=== PATIENT | female | born 2000 | race Caucasian/White ===

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

== ENCOUNTER 2022-03-26 11:14 | Inpatient (IN) ==
[2022-03-26] MEDS ORDERED: ONDANSETRON INJ 2 MG/ML 2 ML VIAL IV STA (14:49)
[2022-03-26] MEDS ORDERED: ONDANSETRON INJ 2 MG/ML 2 ML VIAL ONE (14:50)
--- NOTE | 2022-03-26 16:34 | History & Physical Report ---
Date of Service March 26, 2022 Assessment & Plan (1) Oligohydramnios: (2) IUGR (intrauterine growth restriction): (3) History of loss: (4) Depression: (5) Intrauterine : Plan Plan - Patient admitted to labor and delivery for initiation of medical induction of labor - Currently /-[address] Bertrand, no evidence of contractions - Initiate induction with Connell bulb - Will proceed to Pitocin when bulb dislodges (~ 4 cm) to augment contractions - Once contractions are progressing, will consider ROM if not already - Will anticipate epidural as contractions arise - Labs pending Admission and Anticipated Discharge Date Admission Date: March 26, 2022 History of Present Illness Primary Care Provider: DO Manjinder Valladaresn is a 21 year old female currently at 38 w EGD with MAIKEL 04/06/22 determined by LMP 06/30/21 who presented to L&D after an ultrasound showing oligohydramnios. Patient is being admitted for induction as she was scheduled for induction 03/27/22 d/t IUGR. Patient notes nausea and diarrhea over the last 3 days with a single episode of emesis this AM, no cough or congestion (COVID - ). Complications: IUGR, oligohydramnios Reason for Induction/: IUGR, oligohydramnios Movement: Ongoing, active Fluid Loss/ROM: [place] fluid loss, possible urine leakage, Nitrazine negative Bloody show/discharge: None External FHT and uterine monitor: Category 1, good FHT variability, no contractions Last OB appointment: 03/22, regular care at [facility] Labs: Blood Type: O+ Antibody Screen: Negative Rubella: Immune RPR: Non-reactive Gonorrhea: Negative Chlamydia: Negative HIV: Negative HbSAg: Negative GBS: Negative Cff-DNA: Low risk ROS: +/- - Denies fever, chills, sweats - Denies dyspnea or pleuritic pain - Denies chest pain, palpitations, or pressure - Denies breast pain - Denies dysuria - Denies headache or visual changes Allergies Allergy/AdvReac Type Severity Reaction Status Date / Time hydrocodone [From Vicodin] AdvReac Severe GI upset Verified 03/26/22 11:51 hydromorphone [From Dilaudid] AdvReac stunned Verified 03/26/22 11:51 whole body Home Medications Medication Instructions Recorded Confirmed Type prenat.vits,joy,brt-eklu-nbtcb 1 tab PO DAILY 08/21/21 03/26/22 History left ankle brace #1 ea 11/09/21 03/22/22 Rx escitalopram oxalate 5 mg tablet 5 mg PO DAILY #90 tabs 03/26/22 03/26/22 Rx (Lexapro) Patient History Medical History (Updated 03/26/22 @ 17:14 by Pa Piper DO) Anxiety Burning with urination Depression Interstitial cystitis Implanted bladder stimulator. Raynaud's disease Surgical History (Updated 03/26/22 @ 11:41 by Melissa Reyes, NITHYA) History of appendectomy 2016 History of bladder surgery Implanted bladder stimulator in lower right back. Currently turned off. History of tonsillectomy [place] teeth extracted Family History Father Hypertension Denies family history of Ovarian cancer Breast cancer Lung cancer Colorectal cancer Social History (Updated 03/26/22 @ 11:49 by Melissa Reyes, NITHYA) Smoking Status: Never smoker Hx Alcohol Use: No Hx Substance Use: No Preferred Language: Sami Communication Ability: Effective School Clerk Required: No Beliefs That Will Affect Care: None marital status: marital status details: Aaron (27) [phone] Current Living Situation: Spouse Current Living Situation Comment: lives with spouse, 1 dog. current occupational status: employed current occupation: [employer] Other Information That Helps Us Care for You: No Feels Safe at Home: Yes Safety Concerns: Feels Safe At This Time Assistive Devices: None Physical Exam Physical Exam: General: Alert, oriented. No acute distress. Cardiac: Regular rate and rhythm, no murmurs/rubs/gallops. Respiratory: Clear to auscultation bilaterally a/p, no wheezes/rales/rhonchi. No increased work of breathing. Symmetrical chest rise. No respiratory distress. Abdomen: Gravid; no TTP, fetus in Vertex w/ buttocks in LUQ, movement palpable Pelvic: Dilation 2 cm; Effacement 80; Station -[address] Bertrand @ 1700 Lower Extremities: No lower extremity edema or swelling. No deep calf pain. Marito's negative bilaterally. Results & Data ([facility]) Vital Signs (Past 12 Hours) Vital Signs Temp Pulse Resp BP 03/26/22 15:49 114 H 130/72 03/26/22 13:30 36.8 C 03/26/22 12:30 99 H 135/90 03/26/22 11:35 18 Code Status & VTE Plan Code Status Full Supervising Physician Co-Signing Physician Notes Resident Physician Supervision Note: I was present with Dr. Piper during the history and exam. I discussed the case with the resident and agree with the findings and plan as documented in the note. Any exceptions or clarifications are listed here: Connell bulb inserted, inflated to 30cc sterile water. Will start pitocin. Patient agreeable with plan. Documented By: Portia Bertrand DO Resident Activity Tracking Resident Involvement: Resident Care Provided Care Provided: OB Delivery
[2022-03-26] MEDS ORDERED: OXYTOCIN 30 UNITS/500 ML BAG IV PRN ×2 (17:17→17:29)
[2022-03-26] MEDS ORDERED: LIDOCAINE 1% LOCAL 20 ML VIAL INFIL PRN (17:17)
[2022-03-26 17:44] LABS: Hematocrit (blood only) 37.5 % (34.1-44.9); Hemoglobin 12.8 g/dl (12.0-16.0); Mean Corpuscular Hemoglobin 30.3 pg (25.0-34.0); Mean Corpuscular Hgb Conc 34.1 g/dL (32.0-36.0); Mean Corpuscular Volume 88.9 fL (80.0-100.0); Mean Platelet Volume 12.1 fL (9.4-12.3); Platelet Count 171 K/uL (130-400); RDW Coefficient of Variation 14.1 % (11.5-14.5); RDW Standard Deviation 45.3 fL (36.4-46.3); Red Blood Count 4.22 M/uL (3.93-5.22); White Blood Count 15.05 K/ul (4.8-10.8)
[2022-03-26] MEDS: LACTATED RINGER'S 1,000 ML IV PRN ×2 (18:08→22:07)
[2022-03-26] MEDS: ONDANSETRON INJ 2 MG/ML 2 ML VIAL IV SCH (19:07)
[2022-03-27] MEDS ORDERED: NALOXONE HCL 0.4 MG/1 ML VIAL/CARP IV PRN (01:55)
[2022-03-27] MEDS ORDERED: NALOXONE HCL 1 MG in SODIUM CHLORIDE 0.9% 1000ML 1,000 ML IV PRN (01:55)
[2022-03-27] MEDS ORDERED: diphenhydrAMINE 50 MG/ML VIAL IV PRN (01:55)
[2022-03-27] MEDS ORDERED: fentaNYL 2MCG/ML ROPIVACAINE 1.25MG/ML 100 ML BAG EPI PRN (01:55)
[2022-03-27] MEDS ORDERED: ePHEDrine sulfate 50 MG/ML AMP ONE (01:55)
[2022-03-27] MEDS ORDERED: ePHEDrine sulfate 50 MG/ML AMP IV PRN (01:55)
[2022-03-27] MEDS ORDERED: NALBUPHINE HCL INJ 10 MG/ML AMP IV PRN (01:55)
[2022-03-27] MEDS ORDERED: LIDOCAINE 2%/EPINEPHRINE 1:200,000 20 ML SDV ONE (01:56)
[2022-03-27] MEDS ORDERED: SODIUM CHLORIDE 0.9% INJ 10 ML VIAL ONE (01:56)
[2022-03-27] MEDS ORDERED: fentaNYL 2MCG/ML ROPIVACAINE 1.25MG/ML 100 ML BAG EPI ONE (01:56)
[2022-03-27] MEDS ORDERED: BUPIVACAINE 0.25% 30 ML VIAL ONE (01:56)
[2022-03-27] MEDS ORDERED: fentaNYL citrate 100 MCG/2 ML VIAL ONE (01:56)
--- NOTE | 2022-03-27 01:56 | Anesthesiology Consultation ---
Date of Service March 27, 2022 Assessment & Plan (1) Encounter for pre-operative examination: Chart Review Chart Review: Patient NOT seen in Pre Admission Testing and Acceptable Risk for Labor Epidural Consults Requested none History Height/Weight Height: 5 ft 3 in Weight: 79.379 kg Allergies Allergy/AdvReac Type Severity Reaction Status Date / Time hydrocodone [From Vicodin] AdvReac Severe GI upset Verified 03/26/22 11:51 hydromorphone [From Dilaudid] AdvReac stunned Verified 03/26/22 11:51 whole body Medications Home Medications Medication Instructions Recorded Confirmed Last Taken prenat.vits,joy,ben-kmof-pdidv 1 tab PO DAILY 08/21/21 03/26/22 03/25/22 21:00 left ankle brace #1 ea 11/09/21 03/22/22 Unknown escitalopram oxalate 5 mg tablet 5 mg PO DAILY #90 tabs 03/26/22 03/26/22 03/25/22 21:00 (Lexapro) Active Medications Generic Name Dose Route Start Last Admin Trade Name Freq PRN Reason Stop Dose Admin Lactated Ringer's 1,000 mls @ 125 mls/hr 03/26/22 17:17 03/27/22 01:42 Lr IV 03/28/22 17:16 999 mls/hr .Q8H PRN Infusion L&D Protocol Protocol Oxytocin 30 units in 500 mls @ 13 mls/hr 03/26/22 17:29 03/27/22 01:00 Pitocin IV 03/28/22 17:28 0.78 units/hr .Q24H PRN 13 mls/hr Labor Induction/Augmentation Titration Protocol 0.78 UNITS/HR Ondansetron HCl 4 mg 03/26/22 18:45 03/26/22 19:07 Ondansetron Inj 2 Mg/Ml 2 Ml Vial IV 04/25/22 18:44 4 mg Q6H KATY Administration Past Medical History Medical History Anxiety Burning with urination Depression Interstitial cystitis Implanted bladder stimulator. Raynaud's disease Past Family History Family History Father Hypertension Denies family history of Ovarian cancer Breast cancer Lung cancer Colorectal cancer Past Surgical History Surgical History History of appendectomy 2016 History of bladder surgery Implanted bladder stimulator in lower right back. Currently turned off. History of tonsillectomy [place] teeth extracted Social History Smoking Status: Never smoker Hx Alcohol Use: No Hx Substance Use: No substance use type: does not use Physical Exam Vital Signs Last Vital Signs Temp 98.8 F 03/27/22 00:07 Pulse 105 H 03/27/22 01:05 Resp 18 03/27/22 00:07 BP 126/84 03/27/22 01:05 Testing Laboratory Results 03/26/22 16:46
[2022-03-27] MEDS: LACTATED RINGER'S 1,000 ML IV PRN ×2 (02:19→06:29)
[2022-03-27] MEDS: ONDANSETRON INJ 2 MG/ML 2 ML VIAL IV SCH ×2 (02:24→15:48)
[2022-03-27] MEDS ORDERED: Nursing to Pharmacy Communication SCH (08:15)
[2022-03-27] MEDS ORDERED: OXYTOCIN 30 UNITS/500 ML BAG IV PRN (08:37)
[2022-03-27] MEDS ORDERED: bisacodyL 10 MG SUPP PR PRN (08:37)
[2022-03-27] MEDS ORDERED: BENZOCAINE 20% AER SPR 82.5 GM CAN EXT PRN (08:37)
[2022-03-27] MEDS ORDERED: oxyCODONE/ACETAMINOPHEN 5mg/325mg TAB PO PRN (08:37)
[2022-03-27] MEDS ORDERED: HYDROCORTISONE ACETATE 25 MG SUPP PR PRN (08:37)
[2022-03-27] MEDS ORDERED: DIPHTHERIA/TETANUS/PERTUSSIS 0.5 ML SYR/VIAL IM ONE (08:37)
[2022-03-27] MEDS ORDERED: ESCITALOPRAM OXALATE 10 MG TAB PO SCH (09:00)
--- NOTE | 2022-03-27 09:30 | Obstetrical Progress Note ---
Date of Service March 27, 2022 Assessment & Plan Admission and Anticipated Discharge Date Admission Date: March 26, 2022 Subjective I was called for precipitous delivery of this patient who was managed by [facility]. When I entered the room baby was already delivered by her nurse and was on mom's abdomen. The baby was vigorously moving and crying. The cord was clamped x2 by myself and cut by the father of the baby. And the placenta was found to be the vagina, delivered spontaneously as intact and complete. Uterus was explored and upper segment was contracted already and the lower segment was cleared of all clots and debris's. Vagina and perineum were checked for lacerations. There was first-degree labial lacerations bilaterally, the right side was small about 1.5 cm in length, the left side was longer starting from the edge of the labia minora superiorly and extending into the hymenal ring around 2:00. Both were repaired with 3-0 Vicryl in a running fashion. Excellent hemostasis was achieved. The rest of the vagina and perineum were intact. EBL was 250 mL. Fundus was firm. No complications happened. Then I sign out to Dr. Gallardo. See nursery records for details of infant. Results & Data ([facility]) Vital Signs (Past 12 Hours) Vital Signs Temp Pulse Resp BP Pulse Ox 03/27/22 09:10 115 H 132/88 03/27/22 08:55 115 H 20 132/88 03/27/22 08:40 18 03/27/22 00:07 37.1 C 18 03/27/22 09:18 110 H 130/84 03/27/22 09:05 115 H 132/88 03/27/22 08:48 118 H 135/84 03/27/22 08:33 118 H 128/62 03/27/22 08:29 118 H 125/68 03/27/22 08:26 118 H 118/65 03/27/22 08:23 121 H 117/62 03/27/22 08:20 129 H 127/81 03/27/22 08:16 163 H 96 03/27/22 08:14 118/59 L 03/27/22 08:11 113 H 116/57 L 97 03/27/22 08:08 110 H 18 115/60 03/27/22 08:06 110 H 97 03/27/22 08:05 110 H 120/62 03/27/22 08:01 109 H 96 03/27/22 08:02 110 H 116/59 L 03/27/22 07:59 109 H 118/56 L 03/27/22 07:56 96 03/27/22 07:56 116 H 03/27/22 07:56 112 H 115/58 L 03/27/22 07:53 114 H 110/58 L 03/27/22 07:51 123 H 97 03/27/22 07:50 113 H 111/58 L 03/27/22 07:47 115 H 113/56 L 03/27/22 07:46 115 H 96 03/27/22 07:44 118 H 109/56 L 03/27/22 07:41 120 H 120/59 L 97 03/27/22 07:38 116 H 124/57 L 03/27/22 07:36 116 H 96 03/27/22 07:35 112 H 118/57 L 03/27/22 07:31 119 H 97 03/27/22 07:32 120 H 112/59 L 03/27/22 07:29 114 H 20 108/53 L 03/27/22 07:10 20 03/27/22 07:10 37.3 C 20 03/27/22 07:26 117 H 110/56 L 97 03/27/22 07:23 117 H 119/58 L 03/27/22 07:21 124 H 97 03/27/22 07:20 111 H 119/59 L 03/27/22 07:17 115 H 111/58 L 03/27/22 07:16 113 H 97 03/27/22 07:14 109 H 113/55 L 03/27/22 07:11 121 H 97 03/27/22 07:12 115 H 109/55 L 03/27/22 07:08 129 H 131/69 03/27/22 07:06 128 H 97 03/27/22 07:05 130 H 134/71 03/27/22 07:01 135 H 96 03/27/22 07:02 130 H 127/60 03/27/22 06:59 134 H 132/60 03/27/22 06:56 96 03/27/22 06:56 134 H 03/27/22 06:56 126 H 127/60 03/27/22 06:53 122 H 133/61 03/27/22 06:51 124 H 96 03/27/22 06:50 123 H 126/58 L 03/27/22 06:47 120 H 125/57 L 03/27/22 06:46 122 H 96 03/27/22 06:44 120 H 123/57 L 03/27/22 06:41 123 H 128/60 96 03/27/22 06:38 123 H 125/60 03/27/22 06:36 123 H 96 03/27/22 06:35 122 H 129/60 03/27/22 06:31 122 H 96 03/27/22 06:32 121 H 127/63 03/27/22 06:29 118 H 126/63 03/27/22 06:26 96 03/27/22 06:26 122 H 03/27/22 06:26 120 H 125/64 03/27/22 06:23 118 H 133/70 03/27/22 06:21 119 H 96 03/27/22 06:20 118 H 130/74 03/27/22 06:17 120 H 126/69 03/27/22 06:16 119 H 97 03/27/22 06:14 127 H 126/70 03/27/22 06:11 130 H 126/65 97 03/27/22 06:08 131 H 131/68 03/27/22 06:06 123 H 96 03/27/22 06:05 130 H 124/78 03/27/22 06:02 123 H 125/76 03/27/22 06:01 123 H 97 03/27/22 05:59 133 H 126/80 03/27/22 05:56 97 03/27/22 05:56 126 H 03/27/22 05:56 121 H 124/77 03/27/22 05:53 118 H 129/63 03/27/22 05:51 122 H 99 03/27/22 05:50 121 H 127/63 03/27/22 05:46 122 H 100 03/27/22 05:47 123 H 124/71 03/27/22 05:44 114 H 121/65 03/27/22 05:41 121 H 116/58 L 98 03/27/22 05:38 110 H 119/69 03/27/22 05:36 130 H 98 03/27/22 05:35 127 H 106/59 L 03/27/22 05:32 130 H 107/53 L 03/27/22 05:31 119 H 96 03/27/22 05:29 120 H 111/58 L 03/27/22 05:26 97 03/27/22 05:26 118 H 03/27/22 05:26 116 H 109/56 L 03/27/22 05:23 121 H 107/57 L 03/27/22 05:21 118 H 98 03/27/22 05:20 122 H 107/58 L 03/27/22 05:16 117 H 97 03/27/22 05:17 118 H 116/55 L 03/27/22 05:14 118 H 116/57 L 03/27/22 05:11 117 H 114/56 L 97 03/27/22 05:08 120 H 108/56 L 03/27/22 05:06 118 H 97 03/27/22 05:05 120 H 113/68 03/27/22 05:02 120 H 113/56 L 03/27/22 05:01 117 H 97 03/27/22 04:59 117 H 117/56 L 03/27/22 04:56 98 03/27/22 04:56 119 H 03/27/22 04:56 117 H 125/58 L 03/27/22 04:53 127 H 118/72 03/27/22 04:51 125 H 98 03/27/22 04:50 137 H 118/74 03/27/22 04:46 131 H 99 03/27/22 04:47 130 H 116/71 03/27/22 04:44 37.5 C 129 H 16 124/74 03/27/22 04:41 99 03/27/22 04:41 140 H 03/27/22 04:41 134 H 128/74 03/27/22 04:38 136 H 127/77 03/27/22 04:36 125 H 97 03/27/22 04:35 131 H 133/83 03/27/22 04:32 120 H 135/83 03/27/22 04:31 139 H 99 03/27/22 04:30 115 H 131/83 03/27/22 04:26 145 H 100 03/27/22 04:23 129 H 144/78 H 03/27/22 04:20 98 03/27/22 04:20 125 H 03/27/22 04:20 121 H 143/71 H 03/27/22 04:17 127 H 135/74 03/27/22 04:15 119 H 97 03/27/22 04:14 122 H 128/67 03/27/22 04:11 122 H 134/69 03/27/22 04:10 126 H 96 03/27/22 04:08 117 H 134/72 03/27/22 04:05 121 H 135/70 97 03/27/22 04:02 116 H 131/73 03/27/22 04:00 117 H 98 03/27/22 03:59 127 H 143/79 H 03/27/22 03:55 116 H 99 03/27/22 03:56 118 H 130/80 03/27/22 03:53 131 H 141/82 H 03/27/22 03:50 98 03/27/22 03:50 116 H 03/27/22 03:50 116 H 131/76 03/27/22 03:47 114 H 132/79 03/27/22 03:45 121 H 100 03/27/22 03:44 117 H 131/80 03/27/22 03:41 113 H 134/85 03/27/22 03:40 114 H 99 03/27/22 03:38 16 03/27/22 03:38 37.3 C 118 H 16 137/89 03/27/22 03:35 123 H 127/84 99 03/27/22 03:32 111 H 130/86 03/27/22 03:30 115 H 100 03/27/22 03:29 120 H 133/85 03/27/22 03:26 116 H 137/88 03/27/22 03:25 119 H 100 03/27/22 03:23 103 H 121/81 03/27/22 03:20 96 03/27/22 03:20 121 H 03/27/22 03:20 120 H 117/71 03/27/22 03:17 99 H 115/70 03/27/22 03:15 100 H 99 03/27/22 03:14 105 H 118/70 03/27/22 03:10 101 H 99 03/27/22 03:11 100 H 114/62 03/27/22 03:08 101 H 120/67 03/27/22 03:05 102 H 116/69 100 03/27/22 03:02 101 H 128/79 03/27/22 03:00 100 H 100 03/27/22 02:59 111 H 119/75 03/27/22 02:56 96 H 121/72 03/27/22 02:55 100 H 100 03/27/22 02:53 100 H 121/76 03/27/22 02:50 101 H 112/69 100 03/27/22 02:47 106 H 116/71 03/27/22 02:45 112 H 99 03/27/22 02:44 206 H 106/71 03/27/22 02:42 117 H 100/52 L 88 L 03/27/22 02:40 126 H 93 03/27/22 02:38 151 H 120/71 03/27/22 02:35 121 H 124/74 75 L 03/27/22 02:32 110 H 127/75 03/27/22 02:30 138 H 80 L 03/27/22 02:29 125 H 119/66 03/27/22 02:26 106 H 123/70 03/27/22 02:25 112 H 85 L 03/27/22 02:23 126 H 110/57 L 03/27/22 02:20 141 H 131/76 93 03/27/22 02:19 135 H 93 03/27/22 02:15 118 H 100 03/27/22 02:16 125 H 142/87 H 03/27/22 02:10 115 H 99 03/27/22 02:05 111 H 100 03/27/22 02:00 113 H 100 03/27/22 01:05 105 H 126/84 03/27/22 00:05 114 H 135/79 03/26/22 23:13 112 H 127/75 03/26/22 22:06 125 H 135/89 03/26/22 21:45 18 03/26/22 21:45 37.1 C 18
--- NOTE | 2022-03-27 09:32 | Anesthesia Procedure Note ---
Date of Service March 27, 2022 Anesthesia Post Epidural Note Vital Signs Vital Signs: Temp Pulse Resp BP Pulse Ox 37.3 C 110 H 20 130/84 96 03/27/22 07:10 03/27/22 09:18 03/27/22 08:55 03/27/22 09:18 03/27/22 08:16 Pain Intensity Abdomen: Pain Intensity: 1 Notes Mental Status: alert / awake / arousable and participated in evaluation Nausea / Vomiting: adequately controlled Pain: adequately controlled Airway Patency, RR, SpO2: stable & adequate BP & HR: stable & adequate Hydration State: stable & adequate Neuraxial Anesthesia: was administered and sensory block is resolving Anesthetic Complications: no major complications apparent and Pt Satisfied with anesthetic care Epidural: Removed without complications and With tip intact
--- NOTE | 2022-03-27 11:10 | Delivery Summary ---
Vaginal Delivery Summary Date of Service March 27, 2022 Vaginal Delivery Summary and 1st Degree LAC (bilateral labial ) Patient is a 21-year-old 2 para 0-1-0-0 EDC of 04/06/2022 who had presented at 38-3/7 weeks for her routine visit prior to induction on 03/26/2022. She was not feeling well and had vomiting earlier that morning and also has had diarrhea for at least a week. She had had a prior demise at 24 weeks and had been followed during this for IUGR. Her DBP yesterday was 1.3 cm and she denied any leaking fluid, or vaginal bleeding. She was sent to labor and delivery to begin her induction early because of the low amniotic fluid. She received a cervical balloon last evening. Pitocin augmentation of her labor was begun and she ruptured membranes spontaneously at approximately 05 30 this morning. She had received effective epidural analgesia prior to ruptured membranes. She began feeling pressure and she was examined and she was found to be spontaneously. I was still currently in route to the hospital and Dr. Bertrand was doing a section at that time. She was delivered by Peggy Vega and Humera Stanford who are her labor and delivery nurses and they report that the female infant delivered easily and was vigorous at . Dr. Pardo was available in the labor & delivery unit and assisted in delivering the placenta which was expressed intact with a three- vessel cord. bleeding was controlled with fundal massage and dilute Pitocin. First-degree bilateral labial lacerations were repaired with 3-0 Vicryl. Estimated blood loss was 250 cc. Mother and infant were doing well after delivery. [facility] [place] Vaginal Delivery Charge Delivery Type Details: and 1st Degree LAC (bilateral labial )
[2022-03-27] MEDS: IBUPROFEN 600 MG TAB PO PRN ×3 (12:28→23:41)
[2022-03-27] MEDS: ACETAMINOPHEN 325 MG TAB PO PRN (20:40)
[2022-03-27] MEDS: DOCUSATE SODIUM 100 MG CAP PO SCH (20:40)
[2022-03-28] MEDS: IBUPROFEN 600 MG TAB PO PRN ×4 (05:18→23:12)
[2022-03-28] MEDS: ONDANSETRON INJ 2 MG/ML 2 ML VIAL IV SCH ×4 (06:35→18:17)
[2022-03-28 07:07] LABS: Hematocrit (blood only) 31.1 % (34.1-44.9); Hemoglobin 10.6 g/dl (12.0-16.0); Mean Corpuscular Hemoglobin 30.8 pg (25.0-34.0); Mean Corpuscular Hgb Conc 34.1 g/dL (32.0-36.0); Mean Corpuscular Volume 90.4 fL (80.0-100.0); Platelet Count 135 K/uL (130-400); RDW Coefficient of Variation 14.4 % (11.5-14.5); RDW Standard Deviation 47.1 fL (36.4-46.3); Red Blood Count 3.44 M/uL (3.93-5.22); White Blood Count 15.98 K/ul (4.8-10.8)
--- NOTE | 2022-03-28 07:44 | Obstetrical Progress Note ---
Date of Service March 28, 2022 Assessment & Plan (1) Encounter for care and examination after delivery: satisfactory progress continue current care plan Subjective Ambulation: ambulating normally Voiding: no voiding problems Passing Gas:: Yes Diet Tolerance:: regular diet Feeding Type:: breast feeding doing well this morning. perineum a little sore. Review of Systems All systems reviewed & are unremarkable except as noted in HPI & below Physical Exam Constitutional WD/WN, vitals as above Genitourinary OB Exam Abdomen: + fundal height Fundus: + firm and + relation to umbilicus (1 below U) Results & Data ([facility]) Vital Signs (Past 12 Hours) Vital Signs Temp Pulse Resp BP Pulse Ox O2 Del Method 03/28/22 05:05 97.5 F L 88 18 122/87 03/27/22 23:50 97.5 F L 85 18 137/94 03/27/22 19:45 97.9 F 98 H 18 124/83 97 Room Air
[2022-03-28] MEDS: DOCUSATE SODIUM 100 MG CAP PO SCH ×2 (08:53→20:25)
[2022-03-28] MEDS: PRENATAL VITAMIN 1 TAB PO SCH (08:53)
[2022-03-28] MEDS ORDERED: Nursing to Pharmacy Communication SCH (09:30)
[2022-03-28] MEDS: ACETAMINOPHEN 325 MG TAB PO PRN ×2 (15:46→20:06)
[2022-03-28] MEDS ORDERED: bisacodyL 5 MG TABEC PO SCH (20:00)
[2022-03-28] MEDS ORDERED: ESCITALOPRAM OXALATE 10 MG TAB PO SCH (21:00)
--- NOTE | 2022-03-29 04:17 | Obstetrical Progress Note ---
Date of Service March 29, 2022 Assessment & Plan (1) Encounter for care and examination after delivery: Plan - Overall, feeling well and eating well today - feeding going well without concern - Urinating and passing gas appropriately - Ambulating well - Pain controlled w/ Ibuprofen - Hgb 10.6 on 03/28 - Vitals stable, few DBP in 90s, labs ordered will d/c if stable - Routine PP care progressing well - Anticipate discharge today - Recommending f/u outpatient in 6 weeks Admission and Anticipated Discharge Date Admission Date: March 26, 2022 Supervising Physician Co-Signing Physician Notes Resident Physician Supervision Note: I interviewed and examined the patient. Discussed with Dr. Piper and agree with findings and plan as documented in the note. Any exceptions or clarifications are listed here: PP2 s/p , Doing well. Few elevated diastolics in 90s, will order labs just to make sure stable. If normal, still ok for d/c and will arrange for BP check Documented By: Viri Kim MD Subjective Patient is a 21 y/o female who is PPD #2 following vaginal delivery at 38w3d. She reports feeling well overall this morning and wants to go home. - Ambulation - well throughout room - Voiding/Connell - independent voids, no dysuria or pressure - Gas/Stool - passing gas, no bowel movement - Diet - regular, no nausea or emesis - Lochia - diminishing, light amount - Infant Feeding Type - breast feeding - Pain Level - 3/10, controlled with Ibuprofen Review of Systems - Denies fever, chills, sweats - Denies shortness of breath, difficulty breathing, chest pain, palpitations, chest pressure. - Denies breast pain. - Denies dysuria. - Denies headache or changes in vision. Physical Exam Physical Exam: General: Alert, oriented. No acute distress. Cardiac: RRR, normal S1/S2, no murmurs/rubs/gallops. Respiratory: Non-labored, CTAB, no wheezes/rales/rhonchi. Symmetric chest rise. Abdomen: Soft, nontender, nondistended. Bowel sounds present. Uterus: Uterine fundus firm, palpable 2 cm below umbilicus. Lower Extremities: Trace lower extremity edema or swelling. No deep calf pain. Marito's negative bilaterally. Results & Data ([facility]) Vital Signs (Past 12 Hours) Vital Signs Temp Pulse Resp BP 03/28/22 19:45 36.9 C 76 18 131/89 Resident Activity Tracking Resident Involvement: Resident Care Provided Care Provided: OB Delivery
[2022-03-29 07:10] LABS: Hematocrit (blood only) 31.6 % (34.1-44.9); Hemoglobin 10.8 g/dl (12.0-16.0); Mean Corpuscular Hemoglobin 30.5 pg (25.0-34.0); Mean Corpuscular Hgb Conc 34.2 g/dL (32.0-36.0); Mean Corpuscular Volume 89.3 fL (80.0-100.0); Mean Platelet Volume 11.7 fL (9.4-12.3); Platelet Count 161 K/uL (130-400); RDW Coefficient of Variation 14.3 % (11.5-14.5); RDW Standard Deviation 46.7 fL (36.4-46.3); Red Blood Count 3.54 M/uL (3.93-5.22); White Blood Count 14.85 K/ul (4.8-10.8)
[2022-03-29] MEDS: ONDANSETRON INJ 2 MG/ML 2 ML VIAL IV SCH (07:10)
[2022-03-29 07:41] LABS: Alanine Aminotransferase 9 U/L (7-52); Albumin Globulin Ratio 1.1 (0.9-2); Albumin Level 3.1 gm/dl (3.4-5.0); Alkaline Phosphatase 168 U/L (34-104); Anion Gap 8 (3-11); Aspartate Aminotransferase 15 U/L (13-39); BUN Creatinine Ratio 11.3 (10-20); Bilirubin,Total 0.2 mg/dl (0.2-1.0); Blood Urea Nitrogen 6 mg/dl (6-23); Calcium 7.8 mg/dl (8.5-10.1); Carbon Dioxide 24 mmol/L (21-32); Chloride 106 mmol/L (98-107); Creatinine Clr Calc Pharmacy 166.1 ml/min; Est GFR (African American) > 150.0 ml/min; Est GFR (Non-African American) 134.8 ml/min; Globulin 2.9 gm/dl (2.5-4.0); Glucose 72 mg/dl (70-99(Fasting)); Potassium 3.4 mmol/L (3.5-5.1); Sodium 138 mmol/L (136-145)
[2022-03-29] MEDS: IBUPROFEN 600 MG TAB PO PRN (08:37)
[2022-03-29] MEDS: DOCUSATE SODIUM 100 MG CAP PO SCH (08:37)
[2022-03-29] MEDS: PRENATAL VITAMIN 1 TAB PO SCH (08:37)
== END 2022-03-29 13:30 | disposition home or self-care (01) | DRG 807 ==
LOC: 4S1 11:14 → 4E2 03-27 15:10
DX: Z3A.38 38 weeks gestation of pregnancy; F32.A Depression, unspecified; Z96.0 Presence of urogenital implants; O70.0 First degree perineal laceration during delivery; Z20.822 Contact with and (suspected) exposure to COVID-19; Z79.899 Other long term (current) drug therapy; O62.3 Precipitate labor; N30.10 Interstitial cystitis (chronic) without hematuria; Z96.82 Presence of neurostimulator; O36.5930 Maternal care for other known or suspected poor fetal growth, third trimester, not applicable or unspecified; O99.344 Other mental disorders complicating childbirth; R19.7 Diarrhea, unspecified; Z37.0 Single live birth; Z87.59 Personal history of other complications of pregnancy, childbirth and the puerperium; O99.892 Other specified diseases and conditions complicating childbirth; F41.9 Anxiety disorder, unspecified; R11.2 Nausea with vomiting, unspecified; Z88.5 Allergy status to narcotic agent; O41.03X0 Oligohydramnios, third trimester, not applicable or unspecified; O99.62 Diseases of the digestive system complicating childbirth